=== PATIENT | female | born 1970 | race Caucasian/White ===

== ENCOUNTER 2018-05-13 07:49 | Emergency (ER) | payer BC ==
[~2018-05-13] VITALS: Ht 172.7 cm; Wt 71.8 kg
[2018-05-13 07:52] VITALS: Ht 172.7 cm; Wt 71.8 kg
[2018-05-13 08:19] LABS: APPEARANCE HAZY (CLEAR); BILIRUBIN NEGATIVE (NEGATIVE); COLOR YELLOW (YELLOW); GLUCOSE NEGATIVE (NEGATIVE); KETONE NEGATIVE (NEGATIVE); NITRITE NEGATIVE (NEGATIVE); PROTEIN NEGATIVE (NEGATIVE); UROBILINOGEN NORMAL (NORMAL)
[2018-05-13 08:22] LABS: BACTERIA MANY /hpf (NONE SEEN); EPITHELIAL CELLS 0-5 /hpf (0-5); HYALINE CAST RARE /lpf (NONE SEEN); MUCUS <1+ /lpf (NONE SEEN); RED CELLS - URINE 25-50 /hpf (0-5); WHITE CELLS - URINE 0-5 /hpf (0-5)
[2018-05-13 08:28] LABS: BASOPHILS 0.7 % (0-2); HEMATOCRIT 40.8 % (36.0-48.0); HEMOGLOBIN 13.5 g/dL (12-16); IMMATURE GRANULOCYTES 0.5 % (0-5); LYMPHOCYTES 39.4 % (15-50); MCH 33.1 pg (26.0-34.0); MCHC 33.1 g/dL (31.0-37.0); MONOCYTES 6.2 % (2-11); NEUTROPHILS 49.2 % (40-80); PLATELET COUNT 216 10x3/uL (130-400); RBC 4.08 10x6/uL (4.00-5.40); RDW 12.2 % (11.5-14.5)
[2018-05-13] MEDS ORDERED: PERCOCET 7.5/321 TAB PO (08:29)
[2018-05-13] MEDS ORDERED: FLOMAX0.4 MG PO (08:29)
[2018-05-13 08:41] LABS: ALBUMIN 3.3 g/dL (3.4-5.0); ANION GAP 9.9 mmol/L (8-16); BILIRUBIN - TOTAL 0.23 mg/dL (0.2-1.3); CALCIUM 8.7 mg/dL (8.5-10.1); CARBON DIOXIDE 30.9 mmol/L (21.0-32.0); CREATININE - SERUM 0.9 mg/dL (0.6-1.3); POTASSIUM - SERUM 4.8 mmol/L (3.5-5.1)
[2018-05-13 09:01] VITALS: BP 129/78
== END 2018-05-13 09:01 | disposition home or self-care (01) ==
LOC: D.ER 07:49
PROVIDERS: Emergency Medicine
DX: N20.1 Calculus of ureter (principal)